=== PATIENT | female | born 1985 | race Caucasian/White ===

== ENCOUNTER → 2016-11-29 13:42 | Outpatient (CLI) | payer BC ==
[2013-10-09 08:27] VITALS: BMI 28.3
[~2016-11-29 13:42] MED LIST: NORCO 10/325 TA1 TA1 PO
== END | disposition home or self-care (01) ==
LOC: D.MRI 13:42
DX: R51 Headache (principal)

== ENCOUNTER → 2017-11-01 12:47 | Outpatient (CLI) | payer BC ==
[2013-10-09 08:27] VITALS: BMI 28.3
== END | disposition home or self-care (01) ==
LOC: D.CT 10-28 17:00
DX: R10.9 Unspecified abdominal pain (principal)

== ENCOUNTER → 2018-01-24 07:46 | Outpatient (CLI) | payer BC ==
[2013-10-09 08:27] VITALS: BMI 28.3
== END | disposition home or self-care (01) ==
LOC: D.US 07:46
DX: R10.9 Unspecified abdominal pain (principal)

== ENCOUNTER → 2018-01-31 09:34 | Outpatient (CLI) | payer BC ==
[2013-10-09 08:27] VITALS: BMI 28.3
== END | disposition home or self-care (01) ==
LOC: D.NM 09:34
DX: R10.9 Unspecified abdominal pain (principal)

== ENCOUNTER → 2018-02-06 11:48 | Outpatient (CLI) | payer BC ==
[2013-10-09 08:27] VITALS: BMI 28.3
== END | disposition home or self-care (01) ==
LOC: D.CT 11:48
DX: R10.9 Unspecified abdominal pain (principal)